=== PATIENT | male | born 1960 | race Caucasian/White ===

== ENCOUNTER → 2025-08-24 | Outpatient (CLI) | payer OTHER, SELFPAY ==
[2025-08-24 11:34] LABS: Basophils # (Auto) 0.1 Thou/mm3 (0.0-0.2); Basophils % (Auto) 1 % (0-2.5); Eosinophils # (Auto) 0.3 Thou/mm3 (0.0-0.5); Eosinophils % (Auto) 4 % (0-10); Hematocrit 42.3 % (41.0-53.0); Hemoglobin 13.9 g/dL (13.5-16.0); Immature Granulocytes Auto 0.01 Thou/mm3 (0.00-0.00); Lymphocytes # (Auto) 1.3 Thou/mm3 (1.0-4.8); Lymphocytes % (Auto) 19 % (10-50); Mean Corpuscular HGB Conc 32.9 g/dl (31.0-37.0); Mean Corpuscular Hemoglobin 30.3 pg (25.0-35.0); Mean Corpuscular Volume 92 fL (80-100); Monocytes # (Auto) 0.7 Thou/mm3 (0.0-0.8); Monocytes % (Auto) 10 % (0-12); Neutrophils # (Auto) 4.5 Thou/mm3 (1.8-7.7); Neutrophils % (Auto) 66 % (37-80); Nucleated Red Blood Cell # 0.00 Thou/mm3 (0.00-0.00); Nucleated Red Blood Cell % 0 /100 WBC (0); Platelet Count 312 Thou/mm3 (140-440); RDW Standard Deviation 45.1 fL (35.1-43.9); Red Blood Count 4.59 Miln/mm3 (4.50-5.90); White Blood Count 6.8 Thou/mm3 (3.8-10.6)
[2025-08-24 11:45] LABS: Glucose Estimated Average 120 mg/dL (80-131); Hemoglobin A1C 5.8 % Hgb (4.8-6.0)
[2025-08-24 12:04] LABS: Alanine Aminotransferase < 7 U/L (10-49); Albumin, Serum 4.6 gm/dL (3.4-4.8); Albumin/Globulin Ratio 1.7 (1.2-2.2); Alkaline Phosphatase 133 U/L (46-116); Anion Gap 10 (7-16); Aspartate Amino Transferase 10 U/L (0-34); BUN/Creatinine Ratio 9 Ratio (12-20); Bilirubin,Total 0.6 mg/dL (0.3-1.2); Blood Urea Nitrogen 9 mg/dL (9-23); Calcium 10.7 mg/dL (8.3-10.6); Calcium (Corrected) 10.7 mg/dL (8.5-10.1); Carbon Dioxide 31.1 mMol/L (20.0-31.0); Cardiac Risk Estimate 2.5 RATIO (4.0-6.7); Chloride 103 mMol/L (98-107); Cholesterol 142 mg/dL (132-200); Creatinine (Component) 1.0 mg/dL (0.6-1.3); Globulin 2.7 gm/dL (2.3-3.5); Glucose 118 mg/dL (74-106); HDL Cholesterol 57 mg/dL (40-60); LDL Cholesterol,Calculated 69 mg/dL (0-130); Osmolality,Calculated 286 (275-295); Potassium 4.8 mMol/L (3.4-5.1); Sodium 144 mMol/L (136-145); Thyroid Stimulating Hormone 1.85 uIU/mL (0.55-4.78); Total Protein 7.3 gm/dL (5.7-8.2); Triglycerides 81 mg/dL (30-150); eGFR > 60 See Note
== END | disposition home or self-care (01) ==
LOC: COPL 10:40
PROVIDERS: PCP Family Medicine; Referring Provider Family Medicine; Visit Provider Family Medicine
DX: D64.9 Anemia, unspecified (principal); E11.69 Type 2 diabetes mellitus with other specified complication; E78.2 Mixed hyperlipidemia; I10 Essential (primary) hypertension
CPT/HCPCS: 36415; 80053; 80061; 83036; 84443; 85025

== ENCOUNTER 2025-09-15 07:42 | Outpatient (CLI) | payer OTHER, SELFPAY ==
[2025-09-14 14:52] LABS: INR 1.0 (0.9-1.3); Partial Thromboplastin Time 30.5 Seconds (22.0-36.0); Prothrombin Time 10.5 Seconds (9.0-12.2)
[2025-09-14 14:56] LABS: Anion Gap 9 (7-16); BUN/Creatinine Ratio 7 Ratio (12-20); Blood Urea Nitrogen 6 mg/dL (9-23); Calcium 10.1 mg/dL (8.3-10.6); Carbon Dioxide 30.8 mMol/L (20.0-31.0); Chloride 97 mMol/L (98-107); Creatinine (Component) 0.9 mg/dL (0.6-1.3); Glucose 116 mg/dL (74-106); Osmolality,Calculated 272 (275-295); Potassium 4.6 mMol/L (3.4-5.1); Sodium 137 mMol/L (136-145); eGFR > 60 See Note
[2025-09-14 16:49] LABS: Basophils # (Auto) 0.1 Thou/mm3 (0.0-0.2); Basophils % (Auto) 1 % (0-2.5); Eosinophils # (Auto) 0.2 Thou/mm3 (0.0-0.5); Eosinophils % (Auto) 2 % (0-10); Hematocrit 40.6 % (41.0-53.0); Hemoglobin 13.4 g/dL (13.5-16.0); Immature Granulocytes Auto 0.03 Thou/mm3 (0.00-0.00); Lymphocytes # (Auto) 0.9 Thou/mm3 (1.0-4.8); Lymphocytes % (Auto) 10 % (10-50); Mean Corpuscular HGB Conc 33.0 g/dl (31.0-37.0); Mean Corpuscular Hemoglobin 29.8 pg (25.0-35.0); Mean Corpuscular Volume 90 fL (80-100); Monocytes # (Auto) 0.8 Thou/mm3 (0.0-0.8); Monocytes % (Auto) 9 % (0-12); Neutrophils # (Auto) 7.6 Thou/mm3 (1.8-7.7); Neutrophils % (Auto) 79 % (37-80); Nucleated Red Blood Cell # 0.00 Thou/mm3 (0.00-0.00); Nucleated Red Blood Cell % 0 /100 WBC (0); Platelet Count 314 Thou/mm3 (140-440); RDW Standard Deviation 42.6 fL (35.1-43.9); Red Blood Count 4.50 Miln/mm3 (4.50-5.90); White Blood Count 9.6 Thou/mm3 (3.8-10.6)
[2025-09-15] VITALS (11 sets, daily range): BP systolic 86–134; BP diastolic 56–85; PULSE 78–99; RESP 12–23; TEMP 36.9–37.4; O2SAT 98–100; BMI 16.1
--- NOTE | 2025-09-15 08:30 | XR_ITS ---
Examination: CT guided percutaneous lung biopsy/aspiration, percutaneous. CT thorax without intravenous contrast Moderate intravenous conscious sedation Date and time of procedure: 09/15/2025, 8:58 a.m. CTDI: 36.4 DLP: 1033 Informed consent provided. A timeout was completed verifying correct patient, procedure, site and positioning. Under physician supervision, Versed and fentanyl was administered intravenously for moderate sedation. Pulse oximetry, heart rate, blood pressure were continuously monitored within independent trained observer present. The physician spent 30 minutes of [id number] sedation time with the patient. Technique: Axial 3 mm sections were obtained for localization of the lung abnormality. Appropriate area is marked. The patient's site was prepped and draped in sterile fashion Maximal sterile barrier technique utilized, including hand hygiene Local anesthesia was obtained with 1% lidocaine. Low dose protocols were performed. One or more of the following dose reduction techniques were used; automated exposure control, adjustment of the mA and/or KV according to patient size, use of iterative reconstruction technique. Findings: 5 cm mass again seen in the right lower lobe. This was targeted for biopsy. The overlying skin was cleaned and draped in normal sterile surgical fashion. 10 cc 1% lidocaine was used for local anesthesia. Conscious sedation was administered with direct continuous nursing supervision. Using CT guidance an 18-gauge needle biopsy device was sequentially advanced into the targeted right lower lobe mass. Multiple core biopsy samples were obtained and passed to pathology who deemed the samples adequate at the time of the procedure. The needle was withdrawn. Hemostasis was achieved. The access site was covered with a sterile dressing. There were no immediate complications. Post procedure CT was performed which demonstrated no evidence of pneumothorax or other acute complication. Patient was transferred to the holding area for post procedural observation. Impression: Successful guided right lower lobe lung biopsy as above.
[2025-09-15] MEDS: MIDAZOLAM INJ 1 MG/ML VIAL 2 ML IVP (09:13)
[2025-09-15] MEDS: fentaNYL CIT INJ 50 mCg/ML AMP 2ML IVP (09:13)
[2025-09-15] MEDS: LIDOCAINE INJ PF 1% 30 ML VIAL 14 ML INFL (09:14)
--- NOTE | 2025-09-15 10:00 | XR_ITS ---
Examination: Chest, AP, portable, single view post procedure. Technique: Chest, AP upright, portable, single view Date and time: 08/16/2025, 150 8:00 a.m. INDICATION: Post biopsy evaluate for pneumothorax. COMPARISON: Chest CT 08/27/2024 FINDINGS: Right lower lung mass. Bilateral pleural effusions. Bilateral apical opacifications. No pneumothorax. IMPRESSION: No pneumothorax
--- NOTE | 2025-09-15 10:19 | PC.NURSE ---
Spoke with Dr. Carson. Chest xray done. Received verbal confirmation okay to discharge home.
== END 2025-09-15 10:40 | disposition home or self-care (01) ==
PROVIDERS: PCP Family Medicine; Referring Provider Family Medicine; Visit Provider Radiology Diagnostic Radiology
DX: R91.8 Other nonspecific abnormal finding of lung field (principal)
CPT/HCPCS: 32408; 36415; 77012; 80048; 85025; 85610; 85730; 99152; A4649; J2250; J3010; J3490